=== PATIENT | female | born 1955 | race Caucasian/White ===

== ENCOUNTER → 2016-11-03 | Outpatient (CLI) | payer OTHER ==
[~2016-11-03] MED LIST: AMOX500C3 PO; ATV/1 PO; ATV/2 PO; ESCI10TA17 PO; GADAVIST IV PRN; MELO15TA4 PO; MESA1TAB4 PO; PRLSR20 PO
--- NOTE | 2016-11-03 18:14 | DIAGNOSTIC IMAGING REPORT ---
MRI OF THE BRAIN AND IACS WITHOUT AND WITH IV CONTRAST CLINICAL HISTORY: Severe headache and asymmetric right ear hearing loss COMPARISON STUDY: CT scan the head dated 01/18/2016 TECHNIQUE: MRI of the brain was performed from the vertex to the skull base utilizing various T1 and T2 weighted sequences. Following the IV administration of 6 mL of Gadavist contrast, additional enhanced images were obtained. FINDINGS: Sagittal T1, axial diffusion, proton density and T2 weighted axial, coronal FLAIR, and pre and post axial T1-weighted images were acquired. These were supplemented with post gadolinium coronal T1 weighted images. No cerebellopontine angle masses are visualized. The 7th and 8th nerve complexes appear normal bilaterally. The pituitary is borderline enlarged measuring 8 mm in height. There is no pathologic enhancement on the post gadolinium coronal images. Axial diffusion-weighted images reveal no evidence of acute or subacute infarction. There is no evidence of ventricular dilatation. Proton density T2-weighted and FLAIR images reveal there are multiple scattered foci of increased T2 signal within the white matter, likely a small vessel basis. There are no abnormal flow voids. There is no evidence of pathologic enhancement. IMPRESSION: 1. No cerebellopontine angle masses are visualized. The 7th and 8th nerve complexes appear normal bilaterally 2. Borderline pituitary enlargement. No evidence of pathologic enhancement 3. No evidence of acute or subacute infarction 4. Moderate foci of increased T2 signal within the white matter, nonspecific finding most often secondary to small vessel disease Electronically signed by: Huy Lino M.D. 11/03/2016 6:12 PM Dictated Date/Time: 11/03/2016 6:06 PM
== END | disposition home or self-care (01) ==
LOC: C.MRI 16:38
PROVIDERS: ATTEND Surgery
DX: H91.8X1 Other specified hearing loss, right ear (principal)

== ENCOUNTER → 2017-01-23 | Outpatient (CLI) | payer OTHER ==
[~2017-01-23] MED LIST changes: -ATV/1 PO; -ESCI10TA17 PO; -GADAVIST IV PRN; -MESA1TAB4 PO; +MESA800T6 PO; -PRLSR20 PO
[2017-01-23 17:45] LABS: PROTHROMBIN TIME (PATIENT) 21.8 SECONDS (9.0-12.0)
== END | disposition home or self-care (01) ==
LOC: C.LAB1850 16:29
PROVIDERS: ATTEND Physician Assistant Medical
DX: I82.432 Acute embolism and thrombosis of left popliteal vein (principal)

== ENCOUNTER → 2017-02-06 | Outpatient (CLI) | payer OTHER ==
[~2017-02-06] MED LIST changes: +ATV/1 PO; +ESCI10TA17 PO; +MESA1TAB4 PO; -MESA800T6 PO; +PRLSR20 PO
== END | disposition home or self-care (01) ==
LOC: C.LAB1850 15:46
PROVIDERS: ATTEND Internal Medicine Interventional Cardiology
DX: I82.432 Acute embolism and thrombosis of left popliteal vein (principal); I87.2 Venous insufficiency (chronic) (peripheral)

== ENCOUNTER → 2017-03-14 | Outpatient (CLI) | payer OTHER ==
[2017-03-14 17:15] LABS: BASO % 1.1 %; BASO ABS # 0.08 K/uL (0-0.2); COMPLETE YES; HEMATOCRIT 37.6 % (37-47); IG% 0.1 %; LYMPH % 31.1 %; LYMPH ABS # 2.18 K/uL (1.2-3.4); MEAN CELL VOLUME 93.5 fL (80-100); MEAN CORPUSCULAR HEMOGLOBIN 30.6 pg (25-34); MEAN CORPUSCULAR HGB CONC 32.7 g/dl (32-36); MEAN PLATELET VOLUME 9.7 fL (7.4-10.4); NEUT % 49.7 %; PLATELET COUNT 226 K/uL (130-400); RED BLOOD COUNT 4.02 M/uL (4.2-5.4); WHITE BLOOD COUNT 7.01 K/uL (4.8-10.8)
[2017-03-14 17:48] LABS: ALT/SGPT 30 U/L (12-78); AST/SGOT 22 U/L (15-37); BLOOD UREA NITROGEN 12 mg/dl (7-18); BUN/CREATININE RATIO 16.1 (10-20); CALCIUM 9.1 mg/dl (8.5-10.1); CARBON DIOXIDE 30 mmol/L (21-32); CHLORIDE 106 mmol/L (98-107); CREATININE 0.77 mg/dl (0.60-1.20); GLUCOSE 86 mg/dl (70-99); POTASSIUM 4.8 mmol/L (3.5-5.1); SODIUM 140 mmol/L (136-145)
[2017-03-14 17:50] LABS: ALB/GLOB RATIO 1.1 (0.9-2); ALKALINE PHOSPHATASE 68 U/L (45-117); C-REACTIVE PROTEIN < 0.29 mg/dl (0-0.29)
== END | disposition home or self-care (01) ==
LOC: C.LAB1850 16:17
PROVIDERS: ATTEND Physician Assistant
DX: Z83.79 Family history of other diseases of the digestive system (principal)

== ENCOUNTER → 2017-06-08 | Outpatient (CLI) | payer OTHER ==
[~2017-06-08] MED LIST changes: -ATV/1 PO; -ESCI10TA17 PO; -MESA1TAB4 PO; +MESA800T6 PO; -PRLSR20 PO
--- NOTE | 2017-06-08 16:00 | DIAGNOSTIC IMAGING REPORT ---
SOFT TISS HEAD/NECK-THYROID CLINICAL HISTORY: 61 years-old Female with ENLARGED THYROID. COMPARISON: None available TECHNIQUE: Multiple real time sonographic images of the thyroid were obtained accessing olivas scale appearance and color doppler flow. FINDINGS: MEASUREMENTS: Right lobe: 6.2 x 2.3 x 2.3 cm Left lobe: 5.9 x 2.5 x 2.8 cm Isthmus: 0.5 cm PARENCHYMA: The thyroid parenchymal echotexture is diffusely heterogeneous. NODULES: There is a large complex isoechoic nodule with areas of internal decreased echogenicity in the mid left thyroid, 2.5 x 2.4 x 2.3 cm with internal vascularity. Multiple nodules are seen throughout the right thyroid, largest involves the lower pole and measure 1.4 x 1.1 cm which is isoechoic to thyroid parenchyma. IMPRESSION: 1. Multinodular thyroid with diffusely heterogeneous parenchyma. 2. Dominant nodule of the mid left thyroid measures up to 2.5 cm. This could be further evaluated with FNA. The above report was generated using voice recognition software. It may contain grammatical, syntax or spelling errors. Electronically signed by: Sharad Dugan M.D. 06/08/2017 3:59 PM Dictated Date/Time: 06/08/2017 3:52 PM
== END | disposition home or self-care (01) ==
LOC: C.ULTR 15:27
PROVIDERS: ATTEND Family Medicine
DX: E04.2 Nontoxic multinodular goiter (principal)

== ENCOUNTER → 2017-08-18 | Day surgery (SDC) | payer OTHER ==
[2017-08-14 12:36] VITALS: Ht 172.7 cm; Wt 68.2 kg
[~2017-08-18] VITALS: Ht 172.7 cm; Wt 68.2 kg
[~2017-08-18] MED LIST changes: -AMOX500C3 PO; +ATV/1 PO; -ATV/2 PO; +ESCI10TA17 PO; +LIDOCAINE HCL 2% 2 ML VIAL (20MG/ML) ONE; -MELO15TA4 PO; +MIDAZOLAM HCL 1 MG/ML 2ML VIAL ONE; +ONDANSETRON INJ 2 MG/ML 2 ML VIAL ONE; +PRLSR20 PO; +PROPOFOL IV EMULSION 10 MG/ML 20 ML VIAL IV ONE
--- NOTE | 2017-08-18 08:46 | Endo History and Physical ---
History & Physical Date of Service: Aug 18, 2017. Chief Complaint: history of polyps Referring Physician: Dr. Hector Loera History of Present Illness 62 yo CF who presents for colonoscopy secondary to history of colon polyps. Past Medical History Anxiety, Other, Depression Past Surgical History Hx Cardiac Surgery: No Hx Internal Defibrillator: No Hx Pacemaker: No Hx Abdominal Surgery: Yes (TUBAL LIGATION) Hx of Implantable Prosthesis: No Hx Post-Op Nausea and Vomiting: No Hx Cancer Surgery: No Hx Thoracic Surgery: No Hx Orthopedic: No Hx Urinary Tract Surgery: No Family History Colon CA, IBD Social History Smoking Status: Never Smoker Hx Substance Use: No Hx Alcohol Use: No Allergies Coded Allergies: Rivaroxaban (Verified Allergy, Unknown, RED EYES, 08/14/17) Uncoded Allergies: ELIQUIS (Allergy, Unknown, RED EYES, 08/14/17) Current Medications Reported Home Medications Medications Dose Route/Sig Max Daily Dose Days Date Category Prilosec (Omeprazole) 20 Mg Capcr 20 Mg PO DAILY PRN 08/14/17 Reported Ativan (Lorazepam) 1 Mg Tab 1 Mg PO HS 08/14/17 Reported Lexapro (Escitalopram Oxalate) 10 Mg Tab 10 Mg PO HS 08/14/17 Reported Asacol Hd (Mesalamine) 800 Mg Tab 800 Mg PO TID 01/18/16 Reported Vital Signs Weight (Kilograms): 68.18 Height (Feet): 5 Height (Inches): 8 Date Time Temp Pulse Resp B/P (MAP) Pulse Ox O2 Delivery O2 Flow Rate FiO2 08/18/17 08:09 36.1 65 16 133/81 (98) 99 Room Air Physical Exam General Appearance: WD/WN, no apparent distress Respiratory/Chest: Auscultation: breath sounds normal Cardiovascular: Heart Auscultation: RRR Abdomen: Bowel Sounds: normal Inspection & Palpation: soft, non-distended, no tenderness, guarding & rebound Assessment and Plan Assessment: 62 yo CF who presents for colonoscopy secondary to history of colon polyps. Plan: Proceed with colonoscopy.
--- NOTE | 2017-08-18 09:43 | Discharge Instructions ---
Endoscopy Patient Instructions Date / Procedure(s) Performed Aug 18, 2017. Colonoscopy Allergy Information Coded Allergies: Rivaroxaban (Verified Allergy, Unknown, RED EYES, 08/14/17) Uncoded Allergies: ELIQUIS (Allergy, Unknown, RED EYES, 08/14/17) Discharge Date / Findings Aug 18, 2017. Random colon biopsies Proctitis s/p biopsies Internal hemorrhoids Medication Instructions OK to resume all medications today as prescribed Reported Home Medications Medications Dose Route/Sig Max Daily Dose Days Date Category Prilosec (Omeprazole) 20 Mg Capcr 20 Mg PO DAILY PRN 08/14/17 Reported Ativan (Lorazepam) 1 Mg Tab 1 Mg PO HS 08/14/17 Reported Lexapro (Escitalopram Oxalate) 10 Mg Tab 10 Mg PO HS 08/14/17 Reported Asacol Hd (Mesalamine) 800 Mg Tab 800 Mg PO TID 01/18/16 Reported Provider Instructions Activity Restrictions - No exercising or heavy lifting for 24 hours. - Do not drink alcohol the day of the procedure. - Do not drive a car or operate machinery until the day after the procedure. - Do not make any important decisions or sign important papers in 24 hours after the procedure. Following Day: - Return to full activity which may include returning to work/school. Diet Start your diet with liquids and light foods (jello, soup, juice, toast). Then eat your usual diet if not nauseated. Treatment For Common After Affects For mild abdominal pain, bloating, or excessive gas: - Rest - Eat lightly - Lie on right side Follow-Up Information Follow-up with Dr. Hector Loera as scheduled Anesthesia Information What You Should Know You have had a procedure that required some medicine to reduce anxiety and discomfort. This treatment is called moderate sedation. After receiving the treatment, you may be sleepy, but you will be able to breathe on your own. The effects of the treatment may last for several hours. Follow these instructions along with Activity/Diet recommendations noted above: * Do NOT do anything where dizziness or clumsiness would be dangerous. * Rest quietly at home today, then you can be up and about tomorrow. * Have a responsible person stay with you the rest of today. * You may have had an I.V. today. If so, you may take the dressing off later today. Recommendations Call your doctor if: * Trouble breathing * Continuous vomiting for more than 24 hours * Temperature above 101 degrees * Severe abdominal pain or bloating * Pain not relieved by pain medicine ordered * There is increased drainage or redness from any incision * A large amount of rectal bleeding greater than 2-3 tablespoons. (If you had a polyp/s removed or have hemorrhoids, a small amount of blood - from the rectum is to be expected.) * You have any unanswered questions or concerns. IN THE EVENT OF A SERIOUS EMERGENCY, GO TO THE NEAREST EMERGENCY ROOM Your discharge instructions were prepared by provider Elias Diaz. Patient Instructions Signature Page Christy Oquendo Patient (or Guardian) Signature/Date: I have read and understand the instructions given to me by my caregivers. Caregiver/RN/Doctor Signature/Date: The above-named patient and/or guardian has received patient instructions on this date. + Original Patient Signature Page (only) stays with chart. Please make copy for patient.
--- NOTE | 2017-08-18 09:46 | GI REPORT ---
Procedure Date: 08/18/2017 9:13 AM Procedure: Colonoscopy Indications: Family history of colon cancer in a first-degree relative Medicines: Monitored Anesthesia Care Complications: No immediate complications. Estimated Blood Loss: Estimated blood loss: none. Procedure: Pre-Anesthesia Assessment: - Prior to the procedure, a History and Physical was performed, and patient medications and allergies were reviewed. The patient's tolerance of previous anesthesia was also reviewed. The risks and benefits of the procedure and the sedation options and risks were discussed with the patient. All questions were answered, and informed consent was obtained. Prior Anticoagulants: The patient has taken no previous anticoagulant or antiplatelet agents. ASA Grade Assessment: II - A patient with mild systemic disease. After reviewing the risks and benefits, the patient was deemed in satisfactory condition to undergo the procedure. After I obtained informed consent, the scope was passed under direct vision. Throughout the procedure, the patient's blood pressure, pulse, and oxygen saturations were monitored continuously. The scope was introduced through the anus and advanced to the terminal ileum. The colonoscopy was performed without difficulty. The patient tolerated the procedure well. The quality of the bowel preparation was good. The terminal ileum, ileocecal valve, appendiceal orifice, and rectum were photographed. Findings: The perianal and digital rectal examinations were normal. Inflammation characterized by erythema was found in a continuous and circumferential pattern from the anus to the rectum. This was mild in severity. Biopsies were taken with a cold forceps for histology. Non-bleeding internal hemorrhoids were found during retroflexion. The hemorrhoids were small. 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 Biopsied. - Non-bleeding internal hemorrhoids. Recommendation: - Resume previous diet. - Continue present medications. - Repeat colonoscopy for surveillance based on pathology results. - Return to primary care physician as previously scheduled. Elias Diaz, 08/18/2017 9:46:23 AM This report has been signed electronically. Note Initiated On: 08/18/2017 9:13 AM I attest to the content of the Intraoperative Record and orders documented therein, exceptions below
[2017-08-18 10:07] VITALS: BP 118/79; PULSE 62; O2SAT 98
--- NOTE | 2017-08-18 10:59 | Anesthesiology Progress Note ---
Anesthesia Post Op Note Date & Time Aug 18, 2017 at 10:59 Vital Signs Pain Intensity: 0 Vital Signs Past 12 Hours Date Time Temp Pulse Resp B/P (MAP) Pulse Ox O2 Delivery O2 Flow Rate FiO2 08/18/17 10:07 62 16 118/79 (92) 98 Room Air 08/18/17 09:52 66 16 118/78 (91) 97 Room Air 08/18/17 09:36 66 16 100/61 (74) 98 Room Air 08/18/17 08:09 36.1 65 16 133/81 (98) 99 Room Air Notes Mental Status: alert / awake / arousable, participated in evaluation Pt Amnestic to Procedure: Yes Nausea / Vomiting: adequately controlled Pain: adequately controlled Airway Patency, RR, SpO2: stable & adequate BP & HR: stable & adequate Hydration State: stable & adequate Anesthetic Complications: no major complications apparent
== END | disposition home or self-care (01) ==
LOC: C.GI 07:44
PROVIDERS: ATTEND Internal Medicine
DX: Z12.11 Encounter for screening for malignant neoplasm of colon (principal); K62.89 Other specified diseases of anus and rectum; K21.9 Gastro-esophageal reflux disease without esophagitis; K51.90 Ulcerative colitis, unspecified, without complications; Z80.0 Family history of malignant neoplasm of digestive organs; K64.9 Unspecified hemorrhoids; Z98.51 Tubal ligation status; F41.9 Anxiety disorder, unspecified; F32.9 Major depressive disorder, single episode, unspecified; Z86.718 Personal history of other venous thrombosis and embolism

== ENCOUNTER → 2017-09-18 | Outpatient (CLI) | payer OTHER ==
[~2017-09-18] MED LIST changes: -LIDOCAINE HCL 2% 2 ML VIAL (20MG/ML) ONE; +MESA1TAB4 PO; -MESA800T6 PO; -MIDAZOLAM HCL 1 MG/ML 2ML VIAL ONE; -ONDANSETRON INJ 2 MG/ML 2 ML VIAL ONE; -PROPOFOL IV EMULSION 10 MG/ML 20 ML VIAL IV ONE
[2017-09-18 18:11] LABS: BLOOD UREA NITROGEN 14 mg/dl (7-18); BUN/CREATININE RATIO 17.1 (10-20); CREATININE 0.84 mg/dl (0.60-1.20)
[2017-09-18 18:21] LABS: PROLACTIN 9.09 ng/mL
== END | disposition home or self-care (01) ==
LOC: C.LAB1850 17:20
PROVIDERS: ATTEND Internal Medicine Endocrinology, Diabetes & Metabolism
DX: E23.6 Other disorders of pituitary gland (principal)

== ENCOUNTER → 2017-10-02 | Outpatient (CLI) | payer OTHER ==
[~2017-10-02] MED LIST changes: +GADAVIST IV PRN
--- NOTE | 2017-10-02 17:48 | DIAGNOSTIC IMAGING REPORT ---
MRI OF THE BRAIN AND PITUITARY WITHOUT A WITH CONTRAST CLINICAL HISTORY: Enlarged pituitary gland. COMPARISON STUDY: MRI the brain dated 11/03/2016 FINDINGS: Imaging was performed in the sagittal axial and coronal planes before and after the administration of 7 cc of intravenous Gadavist. No intra or extra-axial mass lesions are visualized. There is no evidence of hydrocephalus. Axial diffusion weighted images reveal no evidence of acute or subacute infarction. Proton density T2-weighted and FLAIR images reveal scattered foci of increased T2 and FLAIR signal within the white matter, similar to the preceding study and likely on a small vessel basis. There are no abnormal flow voids. There are persistent inflammatory changes within the left maxillary sinus. The optic chiasm appears normal. The infundibulum is within the midline. The pituitary gland is borderline enlarged measuring 8 mm in height. This remains unchanged. The superior margin is minimally convex. There is no pathologic enhancement on the dynamic postcontrast series. Postcontrast whole brain images reveal no pathologically enhancing lesions. IMPRESSION: 1. The pituitary gland remains borderline enlarged without evidence of pathologic enhancement 2. No evidence of acute or subacute infarction 3. Stable nonspecific foci of increased T2 signal within the white matter, likely on a small vessel basis Electronically signed by: Huy Lino M.D. 10/02/2017 5:46 PM Dictated Date/Time: 10/02/2017 5:41 PM
== END | disposition home or self-care (01) ==
LOC: C.MRI 16:27
PROVIDERS: ATTEND Internal Medicine Endocrinology, Diabetes & Metabolism
DX: E23.6 Other disorders of pituitary gland (principal); R90.82 White matter disease, unspecified

== ENCOUNTER → 2018-01-29 | Outpatient (CLI) | payer OTHER ==
[~2018-01-29] MED LIST changes: -GADAVIST IV PRN
--- NOTE | 2018-01-30 07:47 | MAMMOGRAPHY REPORT ---
BILATERAL DIGITAL SCREENING MAMMOGRAM TOMOSYNTHESIS WITH CAD: 01/29/2018 CLINICAL HISTORY: Routine screening. Patient has no complaints. TECHNIQUE: Breast tomosynthesis in addition to standard 2D mammography was performed. Current study was also evaluated with a Computer Aided Detection (CAD) system. COMPARISON: Comparison is made to exams dated: 08/08/2016 mammogram - [facility] a nd 10/11/2008 mammogram - [facility]. BREAST COMPOSITION: The tissue of both breasts is heterogeneously dense, which may obscure small mas ses. FINDINGS: There are mild vascular calcifications in the breasts. The parenchymal pattern is similar to prior mammograms. No developing mass, architectural distortion or cluster of suspicious microcalc ifications is seen in either breast. IMPRESSION: ACR BI-RADS CATEGORY 2: BENIGN There is no mammographic evidence of malignancy. A 1 year screening mammogram is recommended. The pa tient will receive written notification of the results. Approximately 10% of breast cancers are not detected with mammography. A negative mammographic report should not delay biopsy if a clinically suggestive mass is present. Radha Stanley M.D. ay/:01/29/2018 12:10:55 Track Oiler: Georgette Stone, [facility] letter sent: Normal 1/2 BI-RADS Code: ACR BI-RADS Category 2: Benign
== END | disposition home or self-care (01) ==
LOC: C.MAMM 09:20
PROVIDERS: ATTEND Family Medicine
DX: Z12.31 Encounter for screening mammogram for malignant neoplasm of breast (principal)